=== PATIENT | female | born 1985 | race Caucasian/White ===

== ENCOUNTER 2016-12-18 03:10 | Emergency (ER) | payer OTHER ==
[2016-12-18 03:10] VITALS: BMI 33.2
[2016-12-18 03:27] VITALS: O2SAT 99
[2016-12-18] MEDS ORDERED: Sodium Chloride 0.9% 1,000 ML ONE (03:28)
[2016-12-18] MEDS ORDERED: Sodium Chloride 0.9% 1,000 ML IV ONE (03:31)
[2016-12-18 03:41] LABS: RBC URINE 254 /hpf (0-3); URINE BACTERIA OCC (<OCC); URINE BILIRUBIN NEGATIVE (NEGATIVE); URINE BLOOD 3+ (NEGATIVE); URINE COLOR Yellow (YELLOW); URINE GLUCOSE (UA) NORMAL (Normal); URINE KETONE NEGATIVE (NEGATIVE); URINE LEUKOCYTE ESTERASE 3+ Leu/uL (Negative); URINE PROTEIN 2+ mg/dL (NEGATIVE); URINE UROBILINOGEN NORMAL mg/dL (0.2-1.0); WBC URINE 343 /hpf (0-5)
[2016-12-18 03:43] LABS: BASO % 0.7 % (0.0-2.0); EOS # 0.3 K/uL (0.0-0.7); HEMATOCRIT 35.3 % (34.0-47.0); LYMPH # 3.1 K/uL (1.0-4.3); MEAN CORPUSCULAR HEMOGLOBIN 26.2 pg (27.0-31.0); MEAN CORPUSCULAR HGB CONC 33.6 g/dL (33.0-37.0); MEAN PLATELET VOLUME 8.2 fL (7.2-11.7); MONO # 0.5 K/uL (0.0-0.8); MONO % 7.7 % (0.0-10.0); NRBC % 0.1 % (0.0-2.0); RED CELL DISTRIBUTION WIDTH 16.3 % (11.5-14.5)
[2016-12-18 03:54] LABS: ALKALINE PHOSPHATASE 89 U/L (38-126); ALT/SGPT 33 U/L (9-52); AST/SGOT 27 U/L (14-36); BILIRUBIN,TOTAL 0.5 mg/dL (0.2-1.3); BLOOD UREA NITROGEN 21 mg/dL (7-17); CALCIUM 9.2 mg/dl (8.6-10.4); CARBON DIOXIDE 21 mmol/L (22-30); CHLORIDE 103 mmol/L (98-107); GFR AFRICAN-AMERICAN > 60; GLUCOSE,RANDOM 112 mg/dL (65-105); POTASSIUM 3.9 mmol/L (3.6-5.2); SODIUM 142 mmol/L (132-148)
[2016-12-18 04:55] VITALS: BP 124/70; PULSE 85; RESP 18; TEMP 98
--- NOTE | 2016-12-18 04:56 | C.PDOC ---
History Of Present Illness 31 y/o female with c/o of right flank pain radiating to right groin x 2 days worse tonight with associated dysuria, urinary frequency. Pt denies fever, vomiting, hematuria, vaginal c/o Time Seen by Provider: 12/18/16 03:33 Chief Complaint (Nursing): Back Pain History Per: Patient History/Exam Limitations: no limitations Current Symptoms Are (Timing): Still Present Severity: Moderate Past Medical History Vital Signs: Last Vital Signs Temp 98 F 12/18/16 04:54 Pulse 85 12/18/16 04:54 Resp 18 12/18/16 04:54 BP 124/70 12/18/16 04:54 Pulse Ox 99 12/18/16 04:58 - Medical History PMH: No Chronic Diseases Family History: States: Unknown Family Hx - Social History Hx Tobacco Use: No Hx Alcohol Use: No Hx Substance Use: No - Immunization History Hx Tetanus Toxoid Vaccination: No Hx Influenza Vaccination: No Hx Pneumococcal Vaccination: No Review Of Systems Constitutional: Negative for: Fever, Chills Gastrointestinal: Positive for: Nausea, Abdominal Pain (right flank). Negative for: Vomiting Genitourinary: Positive for: Dysuria, Frequency. Negative for: Hematuria Physical Exam - Physical Exam Appears: Well, Non-toxic Eye(s): bilateral: Normal Inspection, PERRL Cardiovascular: Rhythm Regular Respiratory: Normal Breath Sounds Gastrointestinal/Abdominal: Soft, Tenderness (right suprapubic), No Distention, No Guarding Back: CVA Tenderness (right) Neurological/Psych: Oriented x3 ED Course And Treatment - Laboratory Results Result Diagrams: 12/18/16 03:35 12/18/16 03:35 O2 Sat by Pulse Oximetry: 99 Progress Note: Toradol IV and zofran IV ordered. Pt reports pain has much improved with only minimal intermittenr back discomfort. Tylenol PO ordered. Labs and UA d/w pt who agrees with plan and will follow up and pt reports unerstanding of d/c instructions Disposition Counseled Patient/Family Regarding: Diagnosis, Need For Followup, Rx Given - Disposition Referrals: [facility] [Outside] Disposition: HOME/ ROUTINE Disposition Time: 04:56 Condition: STABLE Additional Instructions: Increase PO fluids Take all medications prescribed Return to ER if worse Prescriptions: Ibuprofen [Motrin] 600 mg PO Q6H #30 tab Nitrofurantoin Macrocrystals [Macrobid] 1 cap PO BID #14 cap Phenazopyridine HCl [Pyridium] 100 mg PO TID #6 tab Instructions: Urinary Tract Infection in Women (ED) Forms: [employer] ([place]) - Clinical Impression Clinical Impression: UTI (urinary tract infection)
== END 2016-12-18 05:10 | disposition home or self-care (01) ==
LOC: SUPCPDRO 03:10 → C.ER 03:10
DX: N39.0 Urinary tract infection, site not specified (principal)
CPT/HCPCS: 80053; 81001; 84703; 85025; 87086; 96361; 96374; 96375; 99285; J1885; J2405; J7040